=== PATIENT | male | born 1940 | race Caucasian/White ===

== ENCOUNTER 2016-07-08 03:40 | Inpatient (IN) | payer BC, OTHER ==
--- NOTE | ~2016-07-08 | HP ---
History And Physical [id number] [place]. [address] NAME: MARILY RAMÍREZ : 42 STATUS : ADM Melania PAT#: [id number] AGE: 76 ADM/REG DATE : 07/08/16 MR#: [id number] REPORT SERV DATE: 07/08/16 DICTATED BY: HANDY LESTER DATE: 07/08/16 REPORT STATUS : Draft TRANSCRIBED BY: MODL DATE: 07/08/16 DATE OF ADMISSION: 07/08/2016 CARDIOLOGY ADMISSION HISTORY AND PHYSICAL IDENTIFYING DATA: The patient is a 76-year-old man with known coronary heart disease status post coronary artery bypass grafting surgery. CHIEF COMPLAINT: Dyspnea, fatigue, and diaphoresis associated with palpitations with abrupt onset yesterday afternoon. HISTORY OF PRESENT ILLNESS: Mr. Ramírez is a pleasant 76-year-old man, who is a patient of Dr. Jose Worthy. The patient was in his usual state of health until yesterday when he was outside working in the [employer]. The patient reports that he suffered the abrupt onset of palpitations associated with dizziness, dyspnea, and diaphoresis. The symptoms persisted after he sat down to rest and the patient therefore presented to [facility]. There, the patient was found to have elevated cardiac biomarkers. His symptoms had more or less resolved at that time. However, the patient was transferred to the [facility] for cardiac catheterization, given his diagnosis of sci-XW-cckopar elevation myocardial infarction. The patient appears to have been in normal sinus rhythm at the time of his last cardiology clinic visit. Of note, the patient's initial EKG shows atrial fibrillation with a left bundle-branch block pattern. A previous EKG from 05/15/2016 demonstrates a left bundle-branch block pattern; however, the finding of atrial fibrillation was newly described. The patient's heart rate on presentation was 97 beats per minute. At this time, the patient is in an atypical atrial flutter with variable AV conduction, and a ventricular rate of 64 beats per minute. The patient reports his symptoms have resolved at this time. PAST MEDICAL HISTORY: 1. Coronary artery disease status post coronary artery bypass grafting surgery. 2. Chronic systolic heart failure with left ventricular ejection fraction of approximately 35%. 3. Hypertension. 4. History of stroke with mild residual aphasia. PAST SURGICAL HISTORY: Significant for coronary artery bypass grafting surgery in the year 1996 and hernia repair. FAMILY HISTORY: The patient has a positive family history of early coronary heart disease. One of the patient's brothers in his early 40s of myocardial infarction. Both the patient's father and another brother have undergone procedures for coronary heart disease. SOCIAL HISTORY: The patient quit smoking in the . He has no significant history of alcohol or drug use. He is . ALLERGIES: THE PATIENT HAS HAD A PREVIOUS ADVERSE REACTION TO LYRICA, WHICH CAUSES STROKE History And Physical [address] [address] NAME: MARILY RAMÍREZ : 42 STATUS : ADM Melania PAT#: [id number] AGE: 76 ADM/REG DATE : 07/08/16 MR#: [id number] REPORT SERV DATE: 07/08/16 DICTATED BY: HANDY LESTER DATE: 07/08/16 REPORT STATUS : Draft TRANSCRIBED BY: GILMER DATE: 07/08/16 LIKE SYMPTOMS. HOME MEDICATIONS: 1. Alfuzosin 10 mg p.o. daily. 2. Aspirin 81 mg daily. 3. Atorvastatin 10 mg p.o. q.h.s. 4. Carvedilol 12.5 mg p.o. twice daily. 5. Clopidogrel 75 mg p.o. q.a.m. 6. Cymbalta 60 mg p.o. twice daily. 7. Enalapril 2.5 mg twice daily. 8. Remeron 45 mg p.o. q.h.s. 9. Tramadol 100 mg p.o. twice daily. REVIEW OF SYSTEMS: A complete 12-system review was performed. This is noncontributory except for the pertinent positives and negatives noted in the history of present illness above. PHYSICAL EXAMINATION: VITAL SIGNS: Temperature is 98 degrees Fahrenheit, blood pressure is 139/71 mmHg, respirations 14, and oxygen saturation is 98% on room air. Heart rate is currently 73 beats per minute and irregular. CONSTITUTIONAL: The patient is a well-nourished, well-developed older white man, in no acute distress. EYES: PERRL, EOMI, clear conjunctiva. HEAD/MNT: NCAT with moist mucous membranes and grossly normal hard and soft palate. NECK: Supple with no obvious thyromegaly or lymphadenopathy CARDIOVASCULAR: There is a regularly irregular rhythm with a normal S1 and a paradoxically split second heart sound. No significant murmurs, rubs, or gallops are noted. The jugular venous pressure is normal. PULMONARY: Clear to auscultation bilaterally with no wheezing, rales, rhonchi, or dullness to percussion. ABDOMINAL: Soft, non-tender, non-distended with no hepatosplenomegaly noted. EXTREMITIES: There is trace to 1+ ankle edema with no clubbing or cyanosis noted. MUSCULOSKELETAL: Grossly normal strength and range of motion in all extremities INTEGUMENTARY: Skin appears intact with no bruises, wounds or active lesions noted NEURO/PSYC: Alert and oriented x3, with no dysarthria, facial droop or lateralizing weakness noted. DIAGNOSTIC DATA: 12-lead EKG: The patient's initial EKG performed on 07/07/2016 at 2223 hours shows atrial fibrillation with a left bundle-branch block and a ventricular rate of 97 beats per minute. A subsequent EKG performed this morning at 0423 hours shows atrial flutter with variable AV conduction and a left bundle-branch block pattern. Criteria present for anteroseptal myocardial infarction. Again, the patient's left bundle-branch block is previously noted on an ECG from May 2016. LABORATORY DATA: The patient's initial troponin I is 0.54, repeat troponin I this morning is History And Physical [address] [address] NAME: MARILY RAMÍREZ : 42 STATUS : ADM Melania PAT#: [id number] AGE: 76 ADM/REG DATE : 07/08/16 MR#: [id number] REPORT SERV DATE: 07/08/16 DICTATED BY: HANDY LESTER DATE: 07/08/16 REPORT STATUS : Draft TRANSCRIBED BY: MOD DATE: 07/08/16 3.25. Electrolytes show a sodium of 140, potassium 3.9, chloride is 108, CO2 is 23, BUN 11, creatinine is 0.79, glucose is 99, and calcium is 9.0. CBC shows a white blood cell count of 8.7, hemoglobin 13.7, hematocrit 40, and platelets 199. ASSESSMENT AND PLAN: 1. Elj-WP-ubjtplw elevation myocardial infarction: It is unclear whether this might represent an acute coronary syndrome versus demand ischemia from atrial fibrillation with rapid ventricular response. The patient apparently has had no recent documentation of his graft anatomy. We will proceed with coronary angiography and bypass graft angiography to exclude the possibility of graft closure or acute coronary syndrome. The patient will continue on a heparin drip. Informed consent has been obtained for cardiac catheterization and percutaneous coronary intervention if warranted. The patient will continue aspirin, Plavix, and atorvastatin. If possible, we will increase atorvastatin to at least 40 mg daily as per ACC/AHA recommendations. 2. Newly diagnosed atrial fibrillation: The patient denies any previous history of atrial fibrillation or atrial flutter. He is not on an oral anticoagulant. The patient's CHADS2-VASc score is 6 for age x2, hypertension, stroke, and coronary heart disease. The patient will be started on an oral anticoagulant provided no percutaneous coronary intervention is warranted. We will consider DC cardioversion tomorrow depending on the results of the patient's cardiac catheterization. 3. Hypertension: The patient's blood pressure appears adequately controlled at this time. 4. History of chronic systolic heart failure: The patient appears euvolemic at this time and otherwise well-compensated. He will continue his present medication regimen. JCH/MODL Handy Lester MD / [id number] CC: MD Don Del Valle M.D.
--- NOTE | ~2016-07-08 | TEE ---
Transesophageal Echocardiogram [address] [place]. [address] NAME: MARILY RAMÍREZ : 42 STATUS : ADM Melania PAT#: [id number] AGE: 76 ADM/REG DATE : 07/08/16 MR#: [id number] REPORT SERV DATE: 07/09/16 DICTATED BY: VENANCIO THOMAS DATE: 07/09/16 REPORT STATUS : Draft TRANSCRIBED BY: MODL DATE: 07/09/16 TRANSESOPHAGEAL ECHOCARDIOGRAM-GUIDED CARDIOVERSION INDICATIONS: A 76-year-old man with atrial fibrillation. PROCEDURE: After questions were answered and consents were signed, the patient was sedated with propofol per Anesthesia. The probe was placed in mid esophagus and images were obtained without difficulty. At the conclusion of the procedure, the patient was cardioverted with 200 joules of synchronized energy. He is recovering in the short-stay unit. No complications were noted. 2D INTERPRETATION: The left ventricular size and function is grossly normal. No obvious focal wall motion abnormalities noted. The mitral valve opened adequately. No prolapse was noted. No thrombus was noted in the left atrium nor the left atrial appendage. The left atrial appendage was interrogated in multiple angles and views. The interatrial septum showed hyperdynamic motion consistent with atrial septal aneurysm and a small PFO was suggested. The right-sided chambers were normal in size. The aortic valve was trileaflet and opened adequately. The tricuspid valve was grossly normal. No pericardial effusion was noted. Moderate to severe atherosclerotic plaquing was noted in the descending aorta and aortic arch. COLOR FLOW: Trace mitral and aortic regurgitation with mild color flow noted across the patent foramen ovale. Trace tricuspid regurgitation. DOPPLER: Doppler flow velocities in the left atrial appendage approached 40 cm/second. CONCLUSION: 1. NORMAL LEFT VENTRICULAR SYSTOLIC FUNCTION WITH ESTIMATED LVEF OF 55%. 2. NO THROMBUS IN THE LEFT ATRIUM NOR THE LEFT ATRIAL APPENDAGE. 3. 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 WO/MODL Venancio Thomas M.D., Ph.D, F.A.C.C. / [id number] CC: MD Don Del Valle M.D.
[~2016-07-08 03:40] MED LIST: ALEVE220 MG PO; ASAB PO; ASPERDRINK81 MG PO; ASPIRIN 81 MG B8113 PO; COREG12 PO; CYMBALTA60 PO; FLOMAX0.4 M1 PO; FLOMAX4 PO; LIPITOR20 PO; LYRICA75 PO; PLAVIX PO; PRAVACHOL40 MG PO; REMERON45 MG PO; ULTRACET PO; ULTRAM50 PO; UROXATRAL PO; VASOTEC5 PO
[2016-07-08 05:30] LABS: BASOPHILS 0.5 %; BASOPHILS ABSOLUTE 0.04 10/3/uL (0.0-0.16); EOSINOPHILS 2.3 %; IMMATURE GRANULOCYTES 0.2 %; IMMATURE GRANULOCYTES ABSOLUTE 0.02 10/3/uL (0.0-0.11); LYMPHOCYTES ABSOLUTE 1.57 10/3/uL (0.67-4.30); MEAN CORPUSCULAR HEMOGLOB 31.1 pg (26.0-34.0); MEAN CORPUSCULAR VOLUME 90.5 fL (80-100); MEAN PLATELET VOLUME 9.8 fL (9.2-13.0); MONOCYTES 8.1 %; MONOCYTES ABSOLUTE 0.71 10/3/uL (0.21-1.20); NEUTROPHILS 70.9 %; PLATELET COUNT 199 10/3/uL (150-400); RBC DISTRIBUTION WIDTH 13.6 % (12.0-16.0); WHITE BLOOD CELLS 8.7 10/3/uL (4.5-10.5)
[2016-07-08 05:31] LABS: HEMATOCRIT 39.8 % (40.0-51.0); HEMOGLOBIN 13.7 g/dL (13.6-17.8); MANUAL DIFF NO %; MEAN CORPUS HGB CONC 34.4 g/dL (32.0-36.0)
[2016-07-08 05:50] LABS: CHLORIDE, SERUM 108 MMOL/L (96-112); GLUCOSE, SERUM 99 MG/DL (60-99); POTASSIUM, SERUM 3.9 MMOL/L (3.5-5.3); SODIUM, SERUM 140 MMOL/L (135-148)
[2016-07-08 05:51] LABS: CO2 (CARBON DIOXIDE) 23 MMOL/L (24-34)
[2016-07-08 05:52] LABS: BUN (BLOOD UREA NITROGEN) 11 MG/DL (6-23); CREATININE 0.79 MG/DL (0.70-1.30); GFR AFRICAN AMERICAN 102 ML/MIN (>=60); GFR NON AFRICAN AMERICAN 88 ML/MIN (>=60); TROPONIN I 3.25 NG/ML (<0.05)
[2016-07-08 06:01] LABS: PARTIAL THROMBO TIME 58.1 SEC (22.5-37.2)
[2016-07-08 08:06] LABS: CHOL/HDL RATIO(NOT ORDER) 4.3 (0-5); CHOLESTEROL 156 MG/DL (< 200); HDL CHOLESTEROL 36 MG/DL (> 39); LDL CHOLESTEROL 97 MG/DL (< 130); NON-HDL CHOLESTEROL 120 MG/DL (< 160); TRIGLYCERIDE 115 MG/DL (< 150)
[2016-07-09 04:23] LABS: BASOPHILS 0.1 %; BASOPHILS ABSOLUTE 0.01 10/3/uL (0.0-0.16); EOSINOPHILS 1.5 %; EOSINOPHILS ABSOLUTE 0.11 10/3/uL (0.0-0.53); HEMATOCRIT 35.9 % (40.0-51.0); HEMOGLOBIN 12.1 g/dL (13.6-17.8); IMMATURE GRANULOCYTES 0.1 %; IMMATURE GRANULOCYTES ABSOLUTE 0.01 10/3/uL (0.0-0.11); LYMPHOCYTES 32.6 %; LYMPHOCYTES ABSOLUTE 2.44 10/3/uL (0.67-4.30); MANUAL DIFF NO %; MEAN CORPUS HGB CONC 33.7 g/dL (32.0-36.0); MEAN CORPUSCULAR HEMOGLOB 30.6 pg (26.0-34.0); MEAN CORPUSCULAR VOLUME 90.7 fL (80-100); MEAN PLATELET VOLUME 9.6 fL (9.2-13.0); MONOCYTES 9.5 %; MONOCYTES ABSOLUTE 0.71 10/3/uL (0.21-1.20); NEUTROPHILS 56.2 %; NEUTROPHILS ABSOLUTE 4.21 10/3/uL (2.02-8.40); PLATELET COUNT 203 10/3/uL (150-400); RBC DISTRIBUTION WIDTH 13.9 % (12.0-16.0); RED CELL COUNT 3.96 10/6/uL (4.7-6.1); WHITE BLOOD CELLS 7.5 10/3/uL (4.5-10.5)
[2016-07-09 04:45] LABS: CHLORIDE, SERUM 109 MMOL/L (96-112); CO2 (CARBON DIOXIDE) 25 MMOL/L (24-34); CREATININE 1.08 MG/DL (0.70-1.30); FREE T4 1.12 NG/DL (0.76-1.46); GFR AFRICAN AMERICAN 77 ML/MIN (>=60); GFR NON AFRICAN AMERICAN 67 ML/MIN (>=60); GLUCOSE, SERUM 103 MG/DL (60-99); POTASSIUM, SERUM 3.9 MMOL/L (3.5-5.3); SODIUM, SERUM 142 MMOL/L (135-148); ULTRASENSITIVE TSH 0.969 MCIU/ML (0.358-3.740)
[2016-07-09 04:46] LABS: BUN (BLOOD UREA NITROGEN) 16 MG/DL (6-23)
[2016-07-09] MEDS ORDERED: ELIQUIS 5 MG TAB5 MG PO (15:03)
[2016-09-02] MEDS ORDERED: CYMBALTA60 PO (13:04)
[2016-09-02] MEDS ORDERED: LIPITOR10 PO (13:05)
[2016-09-02] MEDS ORDERED: COREG12 PO (13:05)
[2016-09-02] MEDS ORDERED: UROXATRAL PO (13:05)
[2016-09-02] MEDS ORDERED: REMERON45 MG PO (13:05)
[2016-09-02] MEDS ORDERED: ULTRAM50 PO (13:05)
[2016-09-02] MEDS ORDERED: PLAVIX PO (13:05)
[2016-09-02] MEDS ORDERED: VASOTEC2 PO (13:06)
[2016-09-04] MEDS ORDERED: COREG6 PO (17:07)
[2016-09-04] MEDS ORDERED: ELIQUIS 2.5 MG2.5 MG PO (17:08)
[2016-09-04] MEDS ORDERED: CORDARONE PO (17:09)
[2016-09-04] MEDS ORDERED: PEP20 PO (17:10)
== END 2016-07-09 15:35 | disposition home or self-care (01) | DRG 247 ==
LOC: SSU1 03:40
PROVIDERS: Internal Medicine Cardiovascular Disease
PROC: 027034Z Dilation of Coronary Artery, One Artery with Drug-eluting Intraluminal Device, Percutaneous Approach (ICD-10-PCS; principal; 2016-07-08)
PROC: 4A023N7 Measurement of Cardiac Sampling and Pressure, Left Heart, Percutaneous Approach (ICD-10-PCS; 2016-07-08)
PROC: B2151ZZ Fluoroscopy of Left Heart using Low Osmolar Contrast (ICD-10-PCS; 2016-07-08)
PROC: B2131ZZ Fluoroscopy of Multiple Coronary Artery Bypass Grafts using Low Osmolar Contrast (ICD-10-PCS; 2016-07-08)
PROC: B2181ZZ Fluoroscopy of Left Internal Mammary Bypass Graft using Low Osmolar Contrast (ICD-10-PCS; 2016-07-08)
PROC: B2111ZZ Fluoroscopy of Multiple Coronary Arteries using Low Osmolar Contrast (ICD-10-PCS; 2016-07-08)
DX: I21.4 Non-ST elevation (NSTEMI) myocardial infarction (principal); I50.22 Chronic systolic (congestive) heart failure; I48.92 Unspecified atrial flutter; I25.810 Atherosclerosis of coronary artery bypass graft(s) without angina pectoris; I48.91 Unspecified atrial fibrillation; I25.10 Atherosclerotic heart disease of native coronary artery without angina pectoris; I10 Essential (primary) hypertension; I25.5 Ischemic cardiomyopathy; E78.00 Pure hypercholesterolemia, unspecified; E78.5 Hyperlipidemia, unspecified; Z86.73 Personal history of transient ischemic attack (TIA), and cerebral infarction without residual deficits; Z87.891 Personal history of nicotine dependence; I25.2 Old myocardial infarction; Z88.8 Allergy status to other drugs, medicaments and biological substances; Z95.1 Presence of aortocoronary bypass graft; Z79.02 Long term (current) use of antithrombotics/antiplatelets; Z79.82 Long term (current) use of aspirin; Z79.899 Other long term (current) drug therapy
CPT/HCPCS: 71010; 80048; 80061; 82962; 83735; 84439; 84443; 84484; 85025; 85347; 85610; 85730; 92960; 93005; 93312; 93320; 93325; 93459; 96365; 96366; 99152; 99153; 99291; A9270-GY; C1725; C1760; C1769; C1874; C1887; C1894; C9604; J0583; J2250; J3010; Q9967